=== PATIENT | male | born 1980 | race Hispanic/Latino ===

== ENCOUNTER 2017-12-28 21:12 | Emergency (ER) | payer BC, OTHER ==
[2017-12-28] MEDS ORDERED: DEXAMETHASONE SOD PHOSPHATE 10MG/ML 1ML VIAL ONE (22:20)
[2017-12-28] MEDS ORDERED: CEFTRIAXONE SODIUM 1 GM ONE (22:20)
[2017-12-28] MEDS ORDERED: LIDOCAINE HCL-MPF 1% 2ML VIAL ONE (22:20)
[2017-12-28] MEDS ORDERED: IPRATROPIUM/ALBUTEROL SULFATE 3 ML SOLUTION IH ONE (22:31)
== END 2017-12-28 23:13 | disposition home or self-care (01) ==
LOC: EDH 21:12
DX: J20.9 Acute bronchitis, unspecified (principal); J18.9 Pneumonia, unspecified organism
CPT/HCPCS: 71046; 94640; 96372 ×2; 99284; J0696; J1100; J3490